=== PATIENT | female | born 1965 | race Caucasian/White ===

== ENCOUNTER → 2016-02-26 | Outpatient (CLI) | payer BC ==
[~2016-02-26] MED LIST: THYROID MED
== END | disposition home or self-care (01) ==
LOC: C.PAPS 08:00
PROVIDERS: ATTEND Obstetrics & Gynecology
DX: Z01.419 Encounter for gynecological examination (general) (routine) without abnormal findings (principal)

== ENCOUNTER → 2017-05-06 | Outpatient (CLI) | payer OTHER | END | disposition home or self-care (01) | LOC: C.PAPS 12:51 | PROVIDERS: ATTEND Obstetrics & Gynecology | DX: Z01.419 Encounter for gynecological examination (general) (routine) without abnormal findings (principal) ==

== ENCOUNTER → 2017-05-06 | Outpatient (CLI) | payer OTHER | END | disposition home or self-care (01) | LOC: C.LABSPEC 17:28 | PROVIDERS: ATTEND Obstetrics & Gynecology | DX: R39.9 Unspecified symptoms and signs involving the genitourinary system (principal) ==

== ENCOUNTER → 2017-06-05 | Outpatient (CLI) | payer OTHER | END | disposition home or self-care (01) | LOC: C.PATHSPEC 17:15 | PROVIDERS: ATTEND Urology | DX: R31.29 Other microscopic hematuria (principal) ==

== ENCOUNTER → 2017-06-27 | Outpatient (CLI) | payer OTHER ==
[~2017-06-27] MED LIST changes: +OPTIRAY 320 IV PRN
--- NOTE | 2017-06-27 07:28 | DIAGNOSTIC IMAGING REPORT ---
ABD/PELVIS COMBO CT DOSE: 2258.46 mGycm HISTORY: Hematuria R31.29 Hematuria, microscopicNo precert required per Zulay @ [facility] TECHNIQUE: Multiaxial CT images of the abdomen and pelvis were performed pre and post intravenous contrast enhancement. A dose lowering technique was utilized adhering to the principles of ALARA. COMPARISON STUDY: None. FINDINGS: The lung bases are clear. The liver, spleen, gallbladder, pancreas, kidneys, and adrenal glands are within normal limits. No bowel wall thickening or obstruction. The pelvic organs are unremarkable. No suspicious lytic or blastic osseous lesions. Multi phase evaluation of the urinary tracts shows the kidneys to enhance uniformly. Three-dimensional evaluation of the urinary tracts shows no filling defect or abnormality of the upper urinary tracts. Bladder is midline. There are no significant filling defects. There is no significant abdominal pelvic or inguinal adenopathy. IMPRESSION: No significant abnormality identified within the abdomen or pelvis. Urinary tracts are unremarkable. The above report was generated using voice recognition software. It may contain grammatical, syntax or spelling errors. Electronically signed by: Earl Olivera M.D. 06/27/2017 7:26 AM Dictated Date/Time: 06/27/2017 7:22 AM
== END | disposition home or self-care (01) ==
LOC: C.CTS 06:47
PROVIDERS: ATTEND Urology
DX: R31.29 Other microscopic hematuria (principal)